=== PATIENT | male | born 1950 | race Asian ===

== ENCOUNTER 2021-07-12 04:01 | Emergency (ER) | payer OTHER ==
[~2021-07-12] VITALS: Ht 162.6 cm; Wt 65.8 kg
[~2021-07-12 04:01] MED LIST: ASPI325T25 PO; LISI2.5T47 PO; METO-158 PO; MULT-351 PO
[2021-07-12 04:41] VITALS: BP 132/78
== END 2021-07-12 06:09 | disposition home or self-care (01) ==
LOC: ER 04:01
DX: R07.89 Other chest pain (principal); I10 Essential (primary) hypertension; Z20.822 Contact with and (suspected) exposure to COVID-19
CPT/HCPCS: 36415; 71045; 87426; 93005